=== PATIENT | female | born 2000 | race Caucasian/White ===

== ENCOUNTER 2020-02-15 13:44 | Emergency (ER) | payer BC, SELFPAY ==
[2020-02-15 13:47] VITALS: BP 109/66; PULSE 70; RESP 18; TEMP 37.1; O2SAT 100
--- NOTE | 2020-02-15 14:17 | ED.GENADULT ---
HPI - General Adult General Chief complaint: Skin/Abscess/Foreign Body Stated complaint: Skin Rash Time Seen by Provider: 02/15/20 14:00 Source: patient Mode of arrival: ambulatory Limitations: no limitations History of Present Illness HPI narrative: 16-year-old female patient presents to the emergency department accompanied by her mother with complaints of a rash for the past 2 weeks. 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 Patient states she does typically wear jeans on a daily basis. Patient states that she noticed a rash first on her left leg and started off as a small pimple and is gotten worse and spread. Patient states that the rash is itchy at first however when it becomes bigger and the wound becomes bigger it is a burning pain. Patient was recently treated for possible ringworm but she states that it did nothing for the rash and continued to have it spread. Patient complains of rash on bilateral legs, right buttock, under bilateral breasts and under the left arm. Denies fevers, chest pain, shortness of breath. Related Data Allergies Allergy/AdvReac Type Severity Reaction Status Date / Time No Known Allergies Allergy Verified 02/15/20 13:50 Review of Systems Review of Systems: Narrative: CONSTITUTIONAL: Denies fever, chills, or sweats. EYES: Denies visual changes, redness, or discharge. ENT: Denies rhinorrhea, congestion, sore throat, or otalgia. CARDIOVASCULAR: Denies chest pain, palpitations, or edema. RESPIRATORY: Denies cough or dyspnea. GASTROINTESTINAL: Denies abdominal pain, nausea, vomiting, or diarrhea. GENITOURINARY: Denies dysuria or hematuria. SKIN: Positive rash with pain to bilateral legs, right buttock, left underarm and under bilateral breasts x2 weeks MUSCULOSKELETAL: Denies back pain, joint pain, or myalgia. NEUROLOGIC: Denies headache, numbness, or weakness. PSYCHIATRIC: Denies anxiety or depression. PMFSH Comments At the time of my signature I agree with nursing past medical history, surgical, social, and family history. There is no relevant family history pertinent to the presenting complaint. Exam Narrative: Exam Narrative: GENERAL: Well-appearing, well-nourished, and in no acute distress. HEAD: Normocephalic, atraumatic. EYES: PERRLA and EOMI. ENT: Nares clear, no rhinorrhea or epistaxis. Mucous membranes moist. NECK: Supple. No lymphadenopathy CHEST: Clear to auscultation. No respiratory distress. HEART: Regular rate and rhythm. No murmur heard. Normal peripheral pulses. ABDOMEN: Soft, nontender, nondistended, normal active bowel sounds. EXTREMITIES: Normal range of motion. No edema. SKIN: Patient has rash noted to bilateral anterior thigh raise, right buttock, left underarm, under bilateral breasts, and right elbow. The rash is flat, circular with crusting and some yellow discharge to the areas. There is various stages of the rash and there is some small red pimple areas to the anterior thighs with the crusting rash noted in other places. Is very randomize. NEURO: No focal deficits. Alert and oriented x3. Course Vital Signs Vital signs: Vital Signs Temperature 37.1 C 02/15/20 13:47 Pulse Rate 70 02/15/20 13:47 Respiratory Rate 18 02/15/20 13:47 Blood Pressure 109/66 02/15/20 13:47 Pulse Oximetry 100 02/15/20 13:47 Temperature 37.1 C 02/15/20 13:47 Pulse Rate 70 02/15/20 13:47 Respiratory Rate 18 02/15/20 13:47 Blood Pressure 109/66 02/15/20 13:47 Pulse Oximetry 100 02/15/20 13:47 Vital signs reviewed. Medical Decision Making Differential Diagnosis Differential Diagnosis: Differential diagnosis: Contact dermatitis, poison davis, poison sumac, psoriasis, eczema, allergic reaction, drug reaction, scabies, tinea syphilis, lung disease, viral exanthema, pityriasis, erythema multiforme. Discussed with patient that since she is Hira been treated for ringworm I am concerned that this could be possibly a staph infection. Discussed wit
== END 2020-02-15 14:36 | disposition home or self-care (01) ==
LOC: ANHED 14:35
PROVIDERS: Emergency Provider Nurse Practitioner Family; PCP Pediatrics
DX: B35.9 Dermatophytosis, unspecified (principal); B95.8 Unspecified staphylococcus as the cause of diseases classified elsewhere
CPT/HCPCS: 99283